=== PATIENT | male | born 1960 | race African-American/Black ===

== ENCOUNTER 2023-03-08 12:30 | Emergency (ER) | payer MEDICAID ==
[~2023-03-08] VITALS: Ht 172.7 cm; Wt 118.0 kg
[2023-03-08 12:37] VITALS: BP 166/77; PULSE 87; RESP 14; TEMP 98.6; O2SAT 100
[2023-03-08 15:20] LABS: BASOPHILS % 0.6 % (0.0-2.0); EOSINOPHILS % 0.6 % (0.0-5.0); HEMATOCRIT. 44.9 % (42.0-52.0); HEMOGLOBIN. 15.1 g/dL (14.0-18.0); LYMPHOCYTES % 49.4 % (20.0-50.0); MEAN CORPUSCULAR HEMOGLOBIN 29.9 pg (28.0-32.0); MEAN CORPUSCULAR HGB CONC 33.7 g/dL (31.0-37.0); MEAN CORPUSCULAR VOLUME 88.8 fL (80.0-94.0); MEAN PLATELET VOLUME 8.5 fl (7.4-10.4); MONOCYTES % 8.8 % (2.0-8.0); NEUTROPHILS % 40.6 % (40.0-76.0); PLATELET 275 x1000/uL (130-400); RED BLOOD CELL COUNT 5.06 mill/uL (4.7-6.1); RED CELL DISTRIBUTION WIDTH 13.3 % (11.6-14.6); WHITE BLOOD COUNT 5.7 x1000/uL (4.5-11.0)
[2023-03-08 15:44] LABS: CHLORIDE 102 mEq/L (98-107); INDEX HEMOLYSI 1 (1-3); INDEX ICTERIC 1 (1-4); INDEX LIPEMIC 1 (1-3); POTASSIUM 4.2 mEq/L (3.5-5.1); SODIUM 135 mEq/L (136-145)
[2023-03-08 16:09] LABS: ALANINE AMINOTRANSFERASE 44 IU/L (13-61); ALBUMIN 4.2 g/dL (3.4-5.0); ASPARTATE AMINOTRANSFERASE 24 IU/L (15-37); BILIRUBIN TOTAL 0.5 mg/dL (0.1-1.0); CALCIUM 8.7 mg/dL (8.5-10.1); CARBON DIOXIDE 23 mEq/L (21-32); CREATININE 0.6 mg/dL (0.6-1.3); GLUCOSE 257 mg/dL (70-105); NT PRO B-TYPE NATRIURETIC PEP 58 pg/mL (5-125); PROTEIN TOTAL 7.5 g/dL (6.0-8.3); TROPONIN I HIGH SENSITIVITY 14 ng/L (<78); UREA NITROGEN BLOOD 9 mg/dL (7-21)
== END 2023-03-08 18:00 | disposition home or self-care (01) ==
LOC: ER 12:45
DX: M79.89 Other specified soft tissue disorders (principal); E11.9 Type 2 diabetes mellitus without complications
CPT/HCPCS: 36415; 71045; 80053; 83880; 84484; 85025; 93005; 93971; 99285

== ENCOUNTER 2023-12-09 00:26 | Emergency (ER) | payer MEDICAID, OTHER ==
[~2023-12-09] VITALS: Ht 177.8 cm; Wt 91.0 kg
[2023-12-09 00:31] VITALS: BP 112/62; PULSE 68; RESP 18; TEMP 98.2; O2SAT 98
[2023-12-09 01:12] LABS: CHLORIDE 100 mEq/L (98-107); POTASSIUM 3.1 mEq/L (3.5-5.1); SODIUM 134 mEq/L (136-145)
[2023-12-09 01:13] LABS: CARBON DIOXIDE 24 mEq/L (21-32)
[2023-12-09 01:14] LABS: BASOPHILS % 0.8 % (0.0-2.0); HEMATOCRIT. 40.4 % (42.0-52.0); LYMPHOCYTES % 64.2 % (20.0-50.0); MEAN CORPUSCULAR HEMOGLOBIN 30.2 pg (28.0-32.0); MEAN CORPUSCULAR HGB CONC 34.6 g/dL (31.0-37.0); MEAN CORPUSCULAR VOLUME 87.1 fL (80.0-94.0); MEAN PLATELET VOLUME 8.4 fl (7.4-10.4); MONOCYTES % 8.9 % (2.0-8.0); NEUTROPHILS % 25.1 % (40.0-76.0); PLATELET 312 x1000/uL (130-400); RED BLOOD CELL COUNT 4.64 mill/uL (4.7-6.1); WHITE BLOOD COUNT 6.5 x1000/uL (4.5-11.0)
[2023-12-09 01:18] LABS: CREATININE 0.7 mg/dL (0.6-1.3); GLUCOSE 244 mg/dL (70-105); UREA NITROGEN BLOOD 9 mg/dL (9-23)
[2023-12-09 01:20] LABS: INR 0.9; PROTHROMBIN TIME 10.6 sec (9.6-11.0)
[2023-12-09] MEDS: IBUPROFEN 600MG TABLET PO STA (02:08)
[2023-12-09] MEDS: POTASSIUM CHLORIDE 20MEQ TABLET SR PO NR (02:08)
[2023-12-09] MEDS: HYDROCODONE/ACETAMINOPHEN 5/325MG TABLET PO STA (02:08)
[2023-12-09] MEDS: FAMOTIDINE 20MG TABLET PO ONE (05:13)
[2023-12-09] MEDS ORDERED: IBUP-2028 MT (05:36)
== END 2023-12-09 05:50 | disposition home or self-care (01) ==
LOC: ER 00:26
DX: M54.9 Dorsalgia, unspecified (principal); E11.9 Type 2 diabetes mellitus without complications; I10 Essential (primary) hypertension
CPT/HCPCS: 36415; 74176; 80048; 85025; 99284